=== PATIENT | male | born 1990 | race African-American/Black ===

== ENCOUNTER → 2023-05-09 | Outpatient (CLI) | payer OTHER | LOC: M RAD 09:17 | PROVIDERS: ATTEND Physician Assistant | DX: M79.661 Pain in right lower leg (principal) | CPT/HCPCS: 78315; A9503 ==

== ENCOUNTER → 2023-08-14 | Outpatient (CLI) | payer OTHER | LOC: M RAD 15:18 | PROVIDERS: ATTEND Plastic Surgery Surgery of the Hand | DX: D23.30 Other benign neoplasm of skin of unspecified part of face (principal) ==

== ENCOUNTER 2023-09-20 06:33 | Day surgery (SDC) | payer OTHER ==
[~2023-09-20] VITALS: Ht 175.3 cm; Wt 89.6 kg
[2023-09-20] MEDS: LR 1,000 ML IV SCH (07:13)
[2023-09-20 07:21] LABS: HEMATOCRIT 44.1 % (42.0-52.0); HEMOGLOBIN 15.1 g/dl (13.5-17.5); MEAN CORPUSCULAR HEMOGLOBIN 31.2 pg (27.0-33.0); MEAN CORPUSCULAR HGB CONC 34.2 g/dl (32.0-36.5); MEAN CORPUSCULAR VOLUME 91.1 fl (80.0-96.0); PLATELET COUNT, AUTOMATED 278 10^3/uL (150-450); RED BLOOD COUNT 4.84 10^6/uL (4.30-6.10); WHITE BLOOD COUNT 6.8 10^3/uL (4.0-10.0)
[2023-09-20] MEDS ORDERED: propofoL 200 MG/20 ML VIAL As Ordered ONE (07:23)
[2023-09-20] MEDS ORDERED: ONDANSETRON 4MG 2ML VIAL As Ordered ONE (07:23)
[2023-09-20] MEDS ORDERED: LIDOCAINE 2% 100MG/5ML SDV (FOR ANES.) As Ordered ONE (07:23)
[2023-09-20] MEDS ORDERED: fentaNYL 100 MCG/2 ML INJECTION As Ordered ONE (07:24)
[2023-09-20] MEDS ORDERED: MIDAZOLAM INJ 2MG/2ML VIAL As Ordered ONE (07:24)
[2023-09-20 07:48] LABS: BLOOD UREA NITROGEN 15 MG/DL (9-23); CALCIUM LEVEL 9.4 MG/DL (8.5-10.1); CARBON DIOXIDE LEVEL 30 MMOL/L (20-31); CHLORIDE LEVEL 106 MMOL/L (98-107); CREATININE FOR GFR 0.92 MG/DL (0.70-1.30); GLOMERULAR FILTRATION RATE > 60.0 (>60); GLUCOSE, FASTING 103 MG/DL (60-100); POTASSIUM SERUM 4.1 MMOL/L (3.5-5.1); SODIUM LEVEL 139 MMOL/L (136-145)
[2023-09-20] MEDS: ceFAZolin SOD 2 GM in IV 1 EA IV ONE (07:53)
[2023-09-20] MEDS: POVIDONE-IODINE 5% OPHTH PREP SOL 30ML As Ordered ONE (08:00)
[2023-09-20] MEDS ORDERED: LACRILUBE (AKWA TEARS) OPHTH OINT 3.5GM As Ordered ONE (08:00)
[2023-09-20] MEDS ORDERED: ACETAMINOPHEN 1000MG 100ML IV BAG As Ordered ONE (08:00)
[2023-09-20] MEDS: LIDOCAINE 2% W/EPINEPHRINE 20ML VIAL **PRES FREE As Ordered ONE (08:06)
[2023-09-20] MEDS: GENTAMICIN SULF 80MG/2ML VIAL As Ordered ONE (08:44)
[2023-09-20] MEDS ORDERED: HYDROmorphone HCL 2MG/ML 1ML VIAL As Ordered ONE (08:49)
[2023-09-20] MEDS ORDERED: fentaNYL 100 MCG/2 ML INJECTION IV PRN (09:20)
[2023-09-20] MEDS ORDERED: ONDANSETRON 4MG 2ML VIAL IV PRN (09:20)
[2023-09-20] MEDS ORDERED: oxyCODONE 5MG TAB PO PRN (09:20)
[2023-09-20] MEDS ORDERED: CEPH25SS PO (09:35)
[2023-09-20] MEDS: BACITRACIN OINTMENT 30GM TUBE As Ordered ONE (09:46)
[2023-09-20 10:36] VITALS: BP 108/55; TEMP 97.9; O2SAT 100
[2023-09-20] MEDS ORDERED: NALOXONE INJ 0.4MG/1ML VIAL As Ordered ONE (17:25)
== END 2023-09-20 11:02 | disposition home or self-care (01) ==
LOC: M SDC 06:33
PROVIDERS: ATTEND Plastic Surgery Surgery of the Hand
DX: D21.0 Benign neoplasm of connective and other soft tissue of head, face and neck (principal); F17.290 Nicotine dependence, other tobacco product, uncomplicated
CPT/HCPCS: 21014; 36415; 80048; 85027; 88305; J0131; J0690; J1100; J1170; J1580; J2250; J2310; J2405; J3010

== ENCOUNTER → 2024-12-29 | Outpatient (CLI) | payer OTHER ==
[~2024-12-29] MED LIST: CEPH25SS PO; ISOVUE-370 76% 100 ML VIAL As Ordered ONE
== END ==
LOC: M RAD 16:20
DX: M94.0 Chondrocostal junction syndrome [Tietze] (principal)
CPT/HCPCS: 71260; Q9967